=== PATIENT | male | born 1965 | race Caucasian/White ===

== ENCOUNTER 2025-03-19 18:13 | Emergency (ER) | payer OTHER ==
[~2025-03-19] VITALS: Ht 177.8 cm; Wt 65.8 kg
[2025-03-19 21:54] VITALS: BP 125/96; TEMP 98.2; O2SAT 95
== END 2025-03-19 21:54 | disposition home or self-care (01) ==
LOC: ER 18:22
DX: F10.129 Alcohol abuse with intoxication, unspecified (principal); S01.81XA Laceration without foreign body of other part of head, initial encounter; F17.200 Nicotine dependence, unspecified, uncomplicated; W18.39XA Other fall on same level, initial encounter; Y93.89 Activity, other specified; Y92.89 Other specified places as the place of occurrence of the external cause; Y99.8 Other external cause status; Y90.9 Presence of alcohol in blood, level not specified; Z60.2 Problems related to living alone
CPT/HCPCS: 99284; 72125; 70450; A6403